=== PATIENT | female | born 1970 | race Caucasian/White ===

== ENCOUNTER 2022-09-11 13:24 | Emergency (ER) | payer BC, MEDICARE ==
[~2022-09-11] VITALS: Ht 160 cm; Wt 72.0 kg
[~2022-09-11 13:24] MED LIST: ESOM20CA PO; PHE12.5R RC; TRAM50TA2 PO; ZOF4T PO
[2022-09-11 14:08] LABS: BASOPHILS # (AUTO) 0.1 X10'3 (0-0.2); BASOPHILS % (AUTO) 0.6 % (0-1); EOSINOPHILS % (AUTO) 0.2 % (0-6); HEMATOCRIT 47.2 % (35.0-45.0); HEMOGLOBIN 15.8 g/dl (12.0-16.0); LYMPHOCYTES % (AUTO) 16.7 % (21-51); MEAN CORPUSCULAR HEMOGLOBIN 28.6 PG (27.0-31.0); MEAN CORPUSCULAR HGB CONC 33.4 g/dL (33.0-36.5); MEAN CORPUSCULAR VOLUME 85.5 FL (78-98); MEAN PLATELET VOLUME 8.2 FL (7.4-10.4); MONOCYTES # (AUTO) 0.6 X10'3 (0-0.9); MONOCYTES % (AUTO) 4.8 % (2-12); NEUTROPHILS # (AUTO) 9.2 X10'3 (1.8-7.7); NEUTROPHILS % (AUTO) 77.7 % (42-75); PLATELET COUNT 274 X10'3 (140-440); RED BLOOD COUNT 5.51 X10'6 (4.20-5.60); RED CELL DISTRIBUTION WIDTH 14.8 % (11.5-14.5); WHITE BLOOD COUNT 11.8 X10'3 (4.5-11.0)
[2022-09-11 14:09] LABS: CLARITY,URINE CLEAR (Clear); COLOR,URINE YELLOW (Yellow); GLUCOSE, URINE NEGATIVE (Neg); KETONES,URINE >=80 mg/dl (Neg); LEUKOCYTE ESTERASE ,URINE NEGATIVE (Neg); NITRITES, URINE NEGATIVE (Neg); OCCULT BLOOD,URINE NEGATIVE (Neg); PH,URINE 5.5 (4.8-8.0); PROTEIN,URINE NEGATIVE (Neg); UROBILINOGEN,URINE 0.2 E.U/dL (0.2-1.0)
[2022-09-11 14:10] LABS: URINE HCG NEGATIVE (NEG)
[2022-09-11 14:12] LABS: UA COLLECTION TYPE CLN CATCH MIDSTREAM
[2022-09-11 14:19] LABS: ALANINE AMINOTRANSFERASE 25 U/L (12-78); ALBUMIN 4.3 G/DL (3.4-5.0); ALBUMIN/GLOBULIN RATIO 1.2 (1.1-1.5); ALKALINE PHOSPHATASE 103 IU/L (46-116); ANION GAP 14 (8-16); ASPARTATE AMINO TRANSFERASE 22 U/L (10-37); BILIRUBIN,TOTAL 1.3 MG/DL (0.1-1.0); BLOOD UREA NITROGEN 12 MG/DL (7-18); BUN/CREATININE RATIO 9.2 (6.6-38.0); CALCIUM 9.3 MG/DL (8.5-10.1); CHLORIDE 100 MMOL/L (99-107); GLUCOSE 134 MG/DL (70-104); LIPASE 72 U/L (73-393); POTASSIUM 3.4 MMOL/L (3.5-5.1); SODIUM 136 MMOL/L (135-145); TOTAL CARBON DIOXIDE 21.6 MMOL/L (24-32); eGFR 43 ML/MIN
[2022-09-11] MEDS ORDERED: normal saline 1000ML IV soln IVB ONE (14:45)
[2022-09-11] MEDS ORDERED: metoclopramide 5 mg/ml inj IV ONE (14:45)
[2022-09-11] MEDS ORDERED: morphine 2 MG/ML inj. syringe IV ONE (14:45)
[2022-09-11] MEDS ORDERED: LORazepam 2 mg/ml vial IV ONE ×2 (14:45→17:40)
[2022-09-11] MEDS ORDERED: METO-292 PO (17:39)
[2022-09-11] MEDS ORDERED: DICY10CA88 PO (17:39)
[2022-09-11] MEDS ORDERED: LORA-269 PO (17:39)
[2022-09-11 18:08] VITALS: BP 158/84
== END 2022-09-11 18:11 | disposition home or self-care (01) ==
LOC: ER 13:25
DX: R10.84 Generalized abdominal pain (principal); K21.9 Gastro-esophageal reflux disease without esophagitis; Z90.710 Acquired absence of both cervix and uterus; Z98.890 Other specified postprocedural states; Z79.899 Other long term (current) drug therapy
CPT/HCPCS: 36415; 80053; 81003; 81025; 83690; 85025; 96361; 96374; 96375; 96376; 99284; J2060; J2270; J2765; J7030

== ENCOUNTER 2023-07-22 16:04 | Emergency (ER) | payer BC, MEDICARE ==
[~2023-07-22] VITALS: Ht 160 cm; Wt 61.3 kg
[~2023-07-22 16:04] MED LIST changes: -ESOM20CA PO; +HYDR-3973 PO; -PHE12.5R RC; +SEMA0.258; -TRAM50TA2 PO; -ZOF4T PO
[2023-07-22 16:45] VITALS: BP 133/92; PULSE 89; RESP 18; TEMP 98.2; O2SAT 98
[2023-07-22 17:22] LABS: BASOPHILS # (AUTO) 0.1 X10'3 (0-0.2); BASOPHILS % (AUTO) 1.1 % (0-1); EOSINOPHILS % (AUTO) 0.1 % (0-6); HEMATOCRIT 42.3 % (35.0-45.0); HEMOGLOBIN 14.8 g/dl (12.0-16.0); LYMPHOCYTES # (AUTO) 1.5 X10'3 (1.1-4.8); LYMPHOCYTES % (AUTO) 20.6 % (21-51); MEAN CORPUSCULAR HGB CONC 34.9 g/dL (33.0-36.5); MEAN CORPUSCULAR VOLUME 85.9 FL (78-98); MEAN PLATELET VOLUME 8.3 FL (7.4-10.4); MONOCYTES # (AUTO) 0.5 X10'3 (0-0.9); MONOCYTES % (AUTO) 6.5 % (2-12); NEUTROPHILS # (AUTO) 5.3 X10'3 (1.8-7.7); NEUTROPHILS % (AUTO) 71.7 % (42-75); PLATELET COUNT 155 X10'3 (140-440); RED BLOOD COUNT 4.93 X10'6 (4.20-5.60); RED CELL DISTRIBUTION WIDTH 13.1 % (11.5-14.5); WHITE BLOOD COUNT 7.4 X10'3 (4.5-11.0)
[2023-07-22 17:43] LABS: ALANINE AMINOTRANSFERASE 16 U/L (12-78); ALBUMIN/GLOBULIN RATIO 1.3 (1.1-1.5); ALKALINE PHOSPHATASE 69 IU/L (46-116); ANION GAP 14 (8-16); ASPARTATE AMINO TRANSFERASE 10 U/L (10-37); BLOOD UREA NITROGEN 8 MG/DL (7-18); BUN/CREATININE RATIO 10.4 (10.0-20.0); CALCIUM 8.9 MG/DL (8.5-10.1); CHLORIDE 99 MMOL/L (99-107); CREATININE 0.77 MG/DL (0.40-0.90); GLUCOSE 91 MG/DL (70-104); LIPASE 23 U/L (16-77); POTASSIUM 3.4 MMOL/L (3.5-5.1); SODIUM 135 MMOL/L (135-145); TOTAL CARBON DIOXIDE 21.6 MMOL/L (24-32); TOTAL PROTEIN 7.2 G/DL (6.4-8.2); eCRCL 69 ML/MIN; eGFR 78 ML/MIN
[2023-07-22] MEDS ORDERED: ketorolac trometh. 30mg/ml inj. IM ONE (18:25)
[2023-07-22] MEDS ORDERED: NAPR-56 PO (18:25)
[2023-07-22] MEDS ORDERED: metoclopramide 5 mg/ml inj IM ONE (18:25)
[2023-07-22] MEDS ORDERED: ONDA4TAB12 PO (18:25)
[2023-07-22] MEDS ORDERED: ketorolac trometh inj. 60 MG/2 ML VIAL IM ONE (18:25)
[2023-07-22] MEDS ORDERED: PROM12.512 PO (18:29)
== END 2023-07-22 18:53 | disposition home or self-care (01) ==
LOC: ER 16:04
DX: R10.84 Generalized abdominal pain (principal); R11.12 Projectile vomiting; K21.9 Gastro-esophageal reflux disease without esophagitis; Z79.899 Other long term (current) drug therapy
CPT/HCPCS: 36415; 80053; 83690; 85025; 96372; 99284; J1885; J2765

== ENCOUNTER 2023-07-26 11:26 | Emergency (ER) | payer BC, MEDICARE ==
[~2023-07-26] VITALS: Ht 160 cm; Wt 56.1 kg
[~2023-07-26 11:26] MED LIST changes: +NAPR-56 PO; +ONDA4TAB12 PO; +PROM12.512 PO
[2023-07-26] MEDS ORDERED: normal saline 1000ml 1,000 ML IV ONE (12:25)
[2023-07-26] MEDS ORDERED: morphine 2 MG/ML inj. syringe IV ONE ×3 (12:25→15:45)
[2023-07-26] MEDS ORDERED: ondansetron/PF 4mg/2ml inj IV ONE (12:25)
[2023-07-26 13:25] LABS: BASOPHILS % (AUTO) 0.5 % (0-1); EOSINOPHILS % (AUTO) 0.4 % (0-6); HEMATOCRIT 45.8 % (35.0-45.0); HEMOGLOBIN 15.7 g/dl (12.0-16.0); LYMPHOCYTES # (AUTO) 1.5 X10'3 (1.1-4.8); LYMPHOCYTES % (AUTO) 19.1 % (21-51); MEAN CORPUSCULAR HEMOGLOBIN 29.7 PG (27.0-31.0); MEAN CORPUSCULAR HGB CONC 34.3 g/dL (33.0-36.5); MEAN CORPUSCULAR VOLUME 86.7 FL (78-98); MEAN PLATELET VOLUME 8.4 FL (7.4-10.4); MONOCYTES # (AUTO) 0.6 X10'3 (0-0.9); MONOCYTES % (AUTO) 7.8 % (2-12); NEUTROPHILS # (AUTO) 5.8 X10'3 (1.8-7.7); NEUTROPHILS % (AUTO) 72.2 % (42-75); PLATELET COUNT 163 X10'3 (140-440); RED BLOOD COUNT 5.28 X10'6 (4.20-5.60); RED CELL DISTRIBUTION WIDTH 13.1 % (11.5-14.5); WHITE BLOOD COUNT 8.1 X10'3 (4.5-11.0)
[2023-07-26 13:37] LABS: ALANINE AMINOTRANSFERASE 17 U/L (12-78); ALBUMIN 4.2 G/DL (3.4-5.0); ALBUMIN/GLOBULIN RATIO 1.3 (1.1-1.5); ALKALINE PHOSPHATASE 67 IU/L (46-116); ANION GAP 14 (8-16); ASPARTATE AMINO TRANSFERASE 17 U/L (10-37); BILIRUBIN,TOTAL 1.4 MG/DL (0.1-1.0); BLOOD UREA NITROGEN 15 MG/DL (7-18); BUN/CREATININE RATIO 21.1 (10.0-20.0); CALCIUM 9.7 MG/DL (8.5-10.1); CHLORIDE 97 MMOL/L (99-107); CREATININE 0.71 MG/DL (0.40-0.90); ETHANOL < 10 MG/DL (<10); GLUCOSE 104 MG/DL (70-104); LIPASE 31 U/L (16-77); SODIUM 136 MMOL/L (135-145); TOTAL CARBON DIOXIDE 25.2 MMOL/L (24-32); TOTAL PROTEIN 7.4 G/DL (6.4-8.2); eCRCL 75 ML/MIN; eGFR 86 ML/MIN
[2023-07-26 13:40] LABS: POTASSIUM 3.3 MMOL/L (3.5-5.1)
[2023-07-26] MEDS ORDERED: morphine 2 MG/ML inj. syringe IM ONE (16:00)
[2023-07-26] MEDS ORDERED: ondansetron 4mg rapidly disintigrating tab PO ONE (16:00)
[2023-07-26 16:59] LABS: BILIRUBIN,URINE MODERATE (Neg); CLARITY,URINE SLIGHTLY CLOUDY (Clear); COLOR,URINE YELLOW (Yellow); GLUCOSE, URINE NEGATIVE (Neg); KETONES,URINE >=80 mg/dl (Neg); LEUKOCYTE ESTERASE ,URINE NEGATIVE (Neg); NITRITES, URINE NEGATIVE (Neg); OCCULT BLOOD,URINE NEGATIVE (Neg); PROTEIN,URINE 30 mg/dl (Neg); URINE HCG NEGATIVE (NEG); UROBILINOGEN,URINE 0.2 E.U/dL (0.2-1.0)
[2023-07-26 17:10] LABS: UA COLLECTION TYPE CLN CATCH MIDSTREAM
[2023-07-26] MEDS ORDERED: haloperidol lactate 5mg/ml inj IM ONE (17:10)
[2023-07-26 17:14] LABS: BACTERIA,URINE 2+ /HPF (Neg); MUCUS STRANDS FEW /LPF (Neg); RBC,URINE 0-2 /HPF (0-2); SQUAMOUS EPITHELIAL CELL,UR MANY /LPF (FEW)
[2023-07-26 17:15] LABS: AMORPHOUS PHOSPHATES 1+
[2023-07-26 17:27] LABS: URINE AMPHETAMINE SCREEN NEGATIVE (Neg); URINE BARBITUATE SCREEN NEGATIVE (Neg); URINE BENZODIAZEPINES SCREEN POSITIVE (Neg); URINE CANNABINOID SCREEN POSITIVE (Neg); URINE COCAINE SCREEN NEGATIVE (Neg); URINE METHADONE SCREEN NEGATIVE (Neg); URINE OPIATE SCREEN POSITIVE (Neg); URINE PHENCYCLIDINE SCREEN NEGATIVE (Neg)
--- NOTE | 2023-07-26 17:56 | NUR ---
LATE ENTRY: PT WAS PLACED IN ROOM 16 FROM [facility] AFTER LABS HAD BEEN DRAWN. PT COLLECTED UA SAMPLE WHICH LATER WAS REJECTED FOR CONTAMINATIION AND A NEW SAMPLE WAS SENT AT [facility] 1740. MULTIPLE ATTEMPTS AT IV ACCESS BY MULTIPLE STAFF MEMBERS INCLUDING USE OF US W/O SUCCESS. PA CHANGED MEDS TO IM AND CANCELED IV ACCESS. PT IS CURRENTLY RESTING QUIETLY IN NAD WITH AT BS.
[2023-07-26 21:25] VITALS: BP 130/87; PULSE 94; RESP 17; TEMP 97.9; O2SAT 95
== END 2023-07-26 21:27 | disposition home or self-care (01) ==
LOC: ER 11:28
DX: R10.13 Epigastric pain (principal); K21.9 Gastro-esophageal reflux disease without esophagitis; Z79.899 Other long term (current) drug therapy; Z90.710 Acquired absence of both cervix and uterus
CPT/HCPCS: 36415; 76700; 80053; 80305; 80320; 81001; 81025; 83690; 85025; 96372; 99285; J1630; J2270; J7030